=== PATIENT | male | born 1940 | race Caucasian/White ===

== ENCOUNTER 2016-12-28 20:54 | Emergency (ER) | payer OTHER ==
[~2016-12-28] VITALS: Ht 185.4 cm; Wt 104.3 kg
[2016-12-28] MEDS ORDERED: FLOMAX0.4 MG PO (21:14)
[2016-12-28] MEDS ORDERED: NORFLEX100 MG PO (22:27)
[2016-12-28 22:53] VITALS: BP 156/83
== END 2016-12-28 22:54 | disposition home or self-care (01) ==
LOC: EDBD 20:54 → ER 20:54
DX: S20.212A Contusion of left front wall of thorax, initial encounter (principal); S80.12XA Contusion of left lower leg, initial encounter; I25.2 Old myocardial infarction; Z87.442 Personal history of urinary calculi; Z98.890 Other specified postprocedural states; Z88.5 Allergy status to narcotic agent; Z88.0 Allergy status to penicillin; V89.2XXA Person injured in unspecified motor-vehicle accident, traffic, initial encounter; Y93.89 Activity, other specified; Y92.89 Other specified places as the place of occurrence of the external cause; Y99.8 Other external cause status